=== PATIENT | female | born 1985 | race Caucasian/White ===

== ENCOUNTER 2016-12-21 23:02 | Emergency (ER) | payer OTHER ==
[~2016-12-21] VITALS: Ht 157.5 cm; Wt 56.7 kg
[2016-12-21 23:30] VITALS: BP 117/72
--- NOTE | 2016-12-21 23:35 | Emergency Room Report ---
History of Present Illness General Chief Complaint: Upper Extremity Injury Source: Patient Present Illness HPI Is a 31-year-old female who is right-hand dominant. She was at [employer] and she fell. She complaining of left hand pain. Also he over the fourth and fifth knuckle. She did not know the mechanism of movement she grabbed onto something or hit the floor. Complaining of pain over that area. This was an [id number]. No other complaint. No loss of consciousness. No head injury. Pain is 7/10. Allergies: Coded Allergies: No Known Allergies (Unverified , 12/21/16) Patient History Past Medical History: none, see triage record, old chart reviewed Past Surgical History: none Pertinent Family History: none Last Menstrual Period: PT. HAS IUD Now: No Immunizations: other Reviewed Nursing Documentation: PMH: Agreed, PSxH: Agreed Nursing Documentation-PM Past Medical History: No Stated History Review of Systems Eye: Denies: blurred vision, eye pain ENT: Denies: ear pain, nose congestion, throat swelling Respiratory: Denies: cough, shortness of breath Cardiovascular: Denies: chest pain, palpitations Gastrointestinal: Denies: abdominal pain, diarrhea, nausea, vomiting Musculoskeletal: Reports: joint pain, Denies: back pain Skin: Denies: rash Neurological: Denies: headache, numbness Endocrine: Denies: increased thirst, increased urine Hematologic/Lymphatic: Denies: easy bruising All Other Systems: negative except mentioned in HPI Physical Exam Vital Signs Date Time Temp Pulse Resp B/P Pulse Ox O2 Delivery O2 Flow Rate FiO2 12/21/16 23:18 98.1 76 20 117/72 100 Room Air vitals normal Sp02 EP Interpretation: reviewed, normal General Appearance: well appearing, no apparent distress, alert Head: normocephalic, atraumatic Eyes: bilateral eye EOMI, bilateral eye PERRL ENT: hearing grossly normal, normal pharynx Neck: full range of motion, supple, no meningismus Respiratory: chest non-tender, lungs clear, normal breath sounds Cardiovascular #1: regular rate, rhythm, no murmur Gastrointestinal: normal bowel sounds, non tender, no mass, no organomegaly, no bruit, non-distended Musculoskeletal: back normal, gait/station normal, normal range of motion, other - Left hand with tenderness over the fourth and fifth knuckles. Decreased rang of motion second of the pain. Psychiatric: mood/affect normal Skin: warm/dry Procedures Splinting Splinting : Consent: Verbal Pre-Made Type: velcro Splint: volar Pre-Proc Neuro Vasc Exam: normal Post-Proc Neuro Vasc Exam: normal Patient Tolerated: Well Complications: None Medical Decision Making Diagnostic Impression: Primary Impression: Sprain of MCP joint of hand Qualified Codes: S63.659A - Sprain of metacarpophalangeal joint of unspecified finger, initial encounter ER Course She presents with injury to the hand. Most likely she has a sprain of her fourth MCP joint. No evidence of any fracture. She does have some soft tissue swelling now over the area. No fracture. We'll discharge home. Splint given. Other X-Ray Diagnostic Results Other X-Ray Diagnostic Results : X-Ray Ordered: X-rays left hand Date: December 22, 2016 Time: 00:02 EP Interpretation: Yes Findings: no fractures, no dislocation, no soft tissue swelling Number of Views: 3 Last Vital Signs Date Time Temp Pulse Resp B/P Pulse Ox O2 Delivery O2 Flow Rate FiO2 12/21/16 23:18 98.1 76 20 117/72 100 Room Air Status: improved Disposition: HOME, SELF-CARE Condition: Stable Scripts Ibuprofen* (MOTRIN*) 600 Mg Tablet 600 MG ORAL THREE TIMES A DAY, #30 TAB 0 Refills Prov: KARRI ROSENBERG M.D. 12/22/16 Additional Instructions: Followup with your DrKristian in 7 days. Ice pack to the area. Return if worse. KARRI ROSENBERG M.D. December 21, 2016 23:35
[2016-12-21] MEDS ORDERED: Norco 5mg/325mg tab ORAL ONE (23:45)
[2016-12-22] MEDS ORDERED: IBUPROFEN600 MG ORAL (00:03)
[2016-12-22 00:38] VITALS: BP 101/69
--- NOTE | 2016-12-22 10:49 | Diagnostic Imaging Report ---
Indication: pain Findings: 3 views of the left hand were obtained. Normal bony mineralization and alignment are demonstrated. No acute fractures, erosions, or periosteal reaction are seen. Soft tissues are unremarkable. Impression: Negative examination of the left hand.
== END 2016-12-22 00:38 | disposition home or self-care (01) ==
LOC: EMR 23:30
DX: S63.659A Sprain of metacarpophalangeal joint of unspecified finger, initial encounter (principal); X58.XXXA Exposure to other specified factors, initial encounter; Y93.9 Activity, unspecified; Y99.9 Unspecified external cause status; M25.50 Pain in unspecified joint; Z97.5 Presence of (intrauterine) contraceptive device
CPT/HCPCS: 29260; 99283